=== PATIENT | female | born 2000 | race Two or more races ===

== ENCOUNTER 2020-04-06 21:59 | Emergency (ER) | payer OTHER ==
[~2020-04-06] VITALS: Ht 152.4 cm; Wt 76.7 kg
[2020-04-06] MEDS ORDERED: PRENATABS RX T1 EACH (22:03)
[2020-04-06] MEDS ORDERED: LEVOTHYROXINE25 MCG (22:03)
== END 2020-04-07 04:00 ==
LOC: ER 21:59
DX: O20.0 Threatened abortion (principal); N93.8 Other specified abnormal uterine and vaginal bleeding; Z20.828 Contact with and (suspected) exposure to other viral communicable diseases

== ENCOUNTER 2022-12-17 20:19 | Outpatient (CLI) | payer OTHER ==
[~2022-12-17] VITALS: Ht 152.4 cm; Wt 83.5 kg
[~2022-12-17 20:19] MED LIST: LEVOTHYROXINE25 MCG; PRENATABS RX T1 EACH
[2022-12-17] MEDS ORDERED: SYNTHROID75 MCG PO (20:40)
== END 2022-12-18 15:42 | disposition home or self-care (01) ==
LOC: OBS/DEL 20:19
PROVIDERS: ATTEND Obstetrics & Gynecology
DX: O23.33 Infections of other parts of urinary tract in pregnancy, third trimester (principal); N39.0 Urinary tract infection, site not specified; Z3A.38 38 weeks gestation of pregnancy